=== PATIENT | male | born 1960 | race Caucasian/White ===

== ENCOUNTER 2017-03-30 15:00 | Emergency (ER) | payer BC ==
[2017-03-30 15:11] VITALS: BP 125/79; PULSE 74; TEMP 98.4; BMI 31.1
--- NOTE | 2017-03-30 15:17 | PDOC ---
History of Present Illness - General Chief Complaint: Redness To Affected Area Stated Complaint: ABRASION TO LLE, POSSIBLE INSECT BITE Time Seen by Provider: 03/30/17 15:17 History Source: Patient Exam Limitations: No Limitations - History of Present Illness Initial Comments: 03/30/17 15:43 CHIEF COMPLAINT: Scratch on left lower leg HISTORY OF PRESENT ILLNESS: This is a 57-year-old man with a history of essential thrombocythemia. He noted a dark spot on his left rachel yesterday and he scratched it, and a dark juliet came off. His friend had Lyme disease and he wants to make sure it is not a tick bite or Lyme disease. There is no fever or chills. There is no skin rash. REVIEW OF SYSTEMS: No Fever or chills No joint pains No skin rash No headache No palpitations Past History - Past Medical History Allergies/Adverse Reactions: Allergies Allergy/AdvReac Type Severity Reaction Status Date / Time No Known Allergies Allergy Verified 03/30/17 15:02 Home Medications: Ambulatory Orders Aspirin [Aspirin EC] 81 mg PO DAILY 03/30/17 Hydroxyurea [Hydrea] mg PO BID 03/30/17 Other medical history: HIGH PLATELETS, essential thrombocythemia - Immunization History Immunization Up to Date: No - Psycho/Social/Smoking Cessation Hx Anxiety: No Suicidal Ideation: No Smoking History: Never smoked Have you smoked in the past 12 months: No Number of Cigarettes Smoked Daily: 0 Information on smoking cessation initiated: No Hx Alcohol Use: (social) Substance Use Type: None *Physical Exam - Vital Signs Last Vital Signs Temp Pulse Resp BP Pulse Ox 98.4 F 74 18 125/79 96 03/30/17 15:00 03/30/17 15:00 03/30/17 15:00 03/30/17 15:00 03/30/17 15:00 - Physical Exam Comments: 03/30/17 15:44 GENERAL: The patient is awake, alert, and fully oriented, in no acute distress. Appears well. HEAD: Normal with no signs of trauma. EYES: Pupils equal, round and reactive to light, extraocular movements intact, sclera anicteric, conjunctiva clear. EXTREMITIES: The left lower leg has a 5 mm linear scratch over the lower anterior rachel. There is no erythema. There is no bull's-eye rash. There is no tick present. There is no edema. NEUROLOGICAL: Normal speech, normal gait. PSYCH: Normal mood, normal affect. SKIN: Warm, Dry, normal turgor, no rashes or lesions noted. Medical Decision Making - Medical Decision Making 03/30/17 15:45 Patient is a 57-year-old man concerned about possible Lyme disease. It appears that he may have picked a scab off of his left rachel, more likely than a tick, and the area has a small linear superficial laceration about 5 mm. This does not appear to be a tick bite. There is no localized rash. I advised him regarding the low likelihood of a tick bite and the low likelihood of risk for Lyme disease. He is nevertheless still concerned. I advised him that a single dose of doxycycline could prevent Lyme in the very rare possibility that he just had a tick bite within the last 24 hours. Patient will be given single dose of doxycycline 100 mg. *DC/Admit/Observation/Transfer Diagnosis at time of Disposition: Skin lesion - Discharge Dispostion Disposition: HOME Condition at time of disposition: Stable Admit: No - Patient Instructions Additional Instructions: You were evaluated today for a possible tick bite. There is no evidence of a tick bite. The small cut on your rachel does not appear to be consistent with a tick bite. There is no Lyme rash present. Just to be on the safe side, you were given one dose of doxycycline in the emergency room to prevent any possible Lyme disease, even no acute tick bite is highly unlikely. No further antibiotics are needed. You may follow-up with your primary care physician. You may return to the emergency department for any severe or progressive symptoms.
[2017-03-30] MEDS ORDERED: DOXYCYCLINE HYCLATE 100 MG CAPSULE PO ONE ×2 (15:49→15:51)
== END 2017-03-30 16:00 | disposition home or self-care (01) ==
LOC: FER 15:00
DX: L98.9 Disorder of the skin and subcutaneous tissue, unspecified (principal); D69.6 Thrombocytopenia, unspecified
CPT/HCPCS: 99282-25

== ENCOUNTER 2018-12-03 11:57 | Emergency (ER) | payer OTHER ==
[2018-12-03 12:20] VITALS: BP 125/74; PULSE 74; TEMP 98.4; BMI 28.7
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
== END 2018-12-03 12:55 | disposition home or self-care (01) ==
LOC: FER 11:57
DX: S13.4XXA Sprain of ligaments of cervical spine, initial encounter (principal); V43.52XA Car driver injured in collision with other type car in traffic accident, initial encounter; Y93.89 Activity, other specified; Y92.410 Unspecified street and highway as the place of occurrence of the external cause; F17.210 Nicotine dependence, cigarettes, uncomplicated
CPT/HCPCS: 99281-25

== ENCOUNTER 2019-11-14 11:54 | Emergency (ER) | payer OTHER ==
[2019-11-14 12:16] VITALS: BP 139/85; PULSE 68; TEMP 98.4; BMI 29.8
[2019-11-14] MEDS ORDERED: KETOROLAC TROMETHAMINE 30 MG/1 ML VIAL IM ONE (12:40)
[2019-11-14] MEDS ORDERED: KETOROLAC TROMETHAMINE 30 MG/1 ML VIAL ONE (12:42)
--- NOTE | 2019-11-14 14:00 | PDOC ---
History of Present Illness - General Chief Complaint: Pain, Acute Stated Complaint: RIB CAGE PAIN Time Seen by Provider: 11/14/19 12:02 History Source: Patient Exam Limitations: No Limitations - History of Present Illness Initial Comments: 11/14/19 13:54 CHIEF COMPLAINT: Right lower rib pain x1 day HISTORY OF PRESENT ILLNESS: 59-year-old man, history of former smoking, history of thrombocytosis on hydroxyurea. Patient was feeling well until he turned and felt a severe pulling pain and a pop in his right lower rib in the anterior midclavicular region. Since that time he has pain with turning, moving, and deep breathing. He also has pain when he touches that area. He denies fever, chills, cough. He denies shortness of breath. He denies any leg swelling or pain. He denies any history of lung disease. He was a smoker but he quit first for 6 years, but then resumed smoking and more recently he quit again a few months ago. REVIEW OF SYSTEMS: GENERAL/CONSTITUTIONAL: No fever or chills. No weakness. No weight change. HEAD, EYES, EARS, NOSE AND THROAT: No change in vision. No ear pain or discharge. No sore throat. CARDIOVASCULAR: Positive chest pain in the right lower chest in the midclavicular line overlying one rib. See HPI. RESPIRATORY: No cough, wheezing, or hemoptysis. GASTROINTESTINAL: No nausea, vomiting, diarrhea or constipation. No rectal bleeding. GENITOURINARY: No dysuria, frequency, or change in urination. MUSCULOSKELETAL: No joint or muscle swelling or pain. No neck or back pain. SKIN AND BREASTS: No rash or easy bruising. NEUROLOGIC: No headache, vertigo, loss of consciousness, or loss of sensation. PSYCHIATRIC: No depression or anxiety. ENDOCRINE: No increased thirst. No abnormal weight change. HEMATOLOGIC/LYMPHATIC: No anemia, easy bleeding, or history of blood clots. Positive history of thrombocytosis. ALLERGIC/IMMUNOLOGIC: No hives or skin allergy. No latex allergy. Past History - Past Medical History Allergies/Adverse Reactions: Allergies Allergy/AdvReac Type Severity Reaction Status Date / Time No Known Allergies Allergy Verified 11/14/19 12:06 Home Medications: Ambulatory Orders Aspirin [Aspirin EC] 81 mg PO DAILY 03/30/17 Hydroxyurea [Hydrea] 1,000 tab PO DAILY 03/30/17 Nabumetone 500 mg PO BID PRN #20 tablet 11/14/19 Anemia: Yes (ESSENTIAL THROMOBCYTHEMIA) COPD: No Other medical history: Thrombocytosis on hydroxyurea - Immunization History Immunization Up to Date: No - Psycho Social/Smoking Cessation Hx Smoking History: Former smoker Have you smoked in the past 12 months: Yes Number of Cigarettes Smoked Daily: 12 If you are a former smoker, when did you quit?: SEP 2019 Information on smoking cessation initiated: Yes Hx Alcohol Use: Yes Drug/Substance Use Hx: No Substance Use Type: None *Physical Exam - Vital Signs Last Vital Signs Temp Pulse Resp BP Pulse Ox 98.4 F 68 16 139/85 100 11/14/19 11:55 11/14/19 11:55 11/14/19 11:55 11/14/19 11:55 11/14/19 11:55 - Physical Exam 11/14/19 13:56 GENERAL: The patient is awake, alert, and fully oriented, in no acute distress. He points to his right lower anterior rib where he has pain, increased on movement. Patient grimaces with certain movements of the trunk due to pain in the chest wall. HEAD: Normal with no signs of trauma. EYES: Pupils equal, round and reactive to light, extraocular movements intact, sclera anicteric, conjunctiva clear. ENT: Ears normal, nares patent, oropharynx clear without exudates. Moist mucous membranes. NECK: Normal range of motion, supple without lymphadenopathy, JVD, or masses. LUNGS: Breath sounds equal, clear to auscultation bilaterally. No wheezes, and no crackles. CHEST: There is focal, point tenderness overlying the rib, two ribs above the costal margin in the midclavicular line. Patient states when he touches this area it reproduces the pain. I am also able to reproduce the pain with palpation to that area. HEART: Regular rate and rhythm, normal S1 and S2 without murmur, rub or gallop. ABDOMEN: Soft, nontender, normoactive bowel sounds. No guarding, no rebound. No masses. EXTREMITIES: Normal range of motion, no edema. No clubbing or cyanosis. No cords, erythema, or tenderness. NEUROLOGICAL: Cranial nerves II through XII grossly intact. Normal speech, normal gait. PSYCH: Normal mood, normal affect. SKIN: Warm, Dry, normal turgor, no rashes or lesions noted. ED Treatment Course - RADIOLOGY Radiology Studies Ordered: Category Date Time Status CHEST PA & LAT [RAD] Stat Radiology 11/14/19 12:40 Completed RIBS RIGHT SIDE [RAD] Stat Radiology 11/14/19 12:39 Completed - Medications Given in the ED: ED Medications Discontinued Medications Generic Name Dose Route Start Last Admin Trade Name Freq PRN Reason Stop Dose Admin Ketorolac Tromethamine 30 mg 11/14/19 12:40 11/14/19 12:45 Toradol Injection - IM 11/14/19 12:41 30 mg ONCE ONE Administration Medical Decision Making - Medical Decision Making 11/14/19 13:58 59-year-old man presents complaining of musculoskeletal pain in the right lower rib cage with point tenderness to 1 of his ribs. He states the pain came on when he was turning and he felt a pull and a pop in that region. He denies any symptoms of lung disease or pneumonia. Examination is notable for focal tenderness overlying 1 rib in the right midclavicular line. Lungs are clear with equal breath sounds. Chest x-ray PA and lateral was performed along with a right rib series. There is no fracture or dislocation of a rib. There is no pleural disease. There is no pulmonary disease. Films read officially by radiology and reviewed by me. Impression: Musculoskeletal right chest wall pain. No evidence for heart or lung disease by history or examination. Discharge - Discharge Information Problems reviewed: Yes Clinical Impression/Diagnosis: Chest wall pain Condition: Good Disposition: HOME - Admission No - Additional Discharge Information Prescriptions: Nabumetone 500 mg PO BID PRN #20 tablet PRN Reason: Pain - Follow up/Referral Referrals: Jefry Coy [Primary Care Provider] - - Patient Discharge Instructions Patient Printed Discharge Instructions: DI for Muscle Strain Additional Instructions: Today you were evaluated for muscular pain in the right lower rib cage. The x- ray of the chest and the right ribs was normal. Take nabumetone 500 mg twice a day with meals to help relieve the pain. Use a warm heating pad to help relieve the pain. Follow-up with your primary care physician this coming week. Return to the emergency department for any severe or progressive symptoms. - Post Discharge Activity
== END 2019-11-14 14:08 | disposition home or self-care (01) ==
LOC: FER 11:54
PROC: 3E0233Z Introduction of Anti-inflammatory into Muscle, Percutaneous Approach (ICD-10-PCS; principal; 2019-11-14)
DX: R07.89 Other chest pain (principal); X58.XXXA Exposure to other specified factors, initial encounter; Y93.89 Activity, other specified; Y92.89 Other specified places as the place of occurrence of the external cause; Z87.891 Personal history of nicotine dependence; D47.3 Essential (hemorrhagic) thrombocythemia
CPT/HCPCS: 71046-TC-FY; 71101-TC-RT-FY; 99282-25